=== PATIENT | male | born 1985 | race Two or more races ===

== ENCOUNTER 2017-02-27 09:00 | Emergency (ER) | payer SELFPAY ==
[2017-03-01 10:39] LABS: BLOOD UREA NITROGEN 14 mg/dL (7-20); CALCIUM 8.6 mg/dL (8.4-10.2); CHLORIDE 100 mmol/L (98-107); CREATININE RESULT 0.79 mg/dL (0.52-1.25); GLUCOSE 296 mg/dL (75-110); POTASSIUM 4.1 mmol/L (3.6-5.0)
[2017-03-01 10:40] LABS: ALANINE AMINOTRANSFERASE 61 U/L (21-72); ALBUMIN 4.1 g/dL (3.5-5.0); ALKALINE PHOSPHATASE 92 U/L (38-126); ANION GAP 17 (5-19); ASPARTATE AMINO TRANSFERASE 33 U/L (17-59); CARBON DIOXIDE 22 mmol/L (22-30); SODIUM 138.6 mmol/L (137-145)
[2017-03-01 10:41] LABS: BILIRUBIN,DIRECT 0.5 mg/dL (0.0-0.4); BILIRUBIN,TOTAL 1.2 mg/dL (0.2-1.3); TOTAL PROTEIN 7.5 g/dL (6.3-8.2)
== END 2017-02-27 14:35 | disposition home or self-care (01) ==
LOC: ER 09:00
DX: E11.9 Type 2 diabetes mellitus without complications (principal); R35.8 Other polyuria; I10 Essential (primary) hypertension; R63.1 Polydipsia; R42 Dizziness and giddiness
CPT/HCPCS: 36415; 80053; 96360; 99285

== ENCOUNTER 2019-05-13 21:35 | Emergency (ER) | payer SELFPAY ==
[2019-05-14] MEDS ORDERED: PENICILLIN G BENZATHINE 1.2 MILLION UNIT/2 ML DISP.SYRIN IM ONE (01:03)
[2019-05-14] MEDS ORDERED: DEXAMETHASONE SOD PHOS INJ 10 MG/1 ML VIAL IM ONE (01:11)
--- NOTE | 2019-05-14 01:20 | ER Document Report ---
HPI - HPI Time Seen by Provider: 05/14/19 00:40 Pain Level: 2 Notes: Patient is an otherwise healthy 34-year-old male presenting to the emergency department with chief complaint of sore throat that is been going on for approximately 5 days. Patient reports fever started 2 days ago. He does report pain is worse to the right side of his throat. He reports he has painful swallowing but is able to swallow. Patient denies any history of similar illnesses. He denies any difficulty breathing. He does report that after the rapid strep was taken here in the emergency department he had some drainage that was foul tasting in his mouth. Past Medical History - General Information source: Patient - Social History Smoking Status: Never Smoker Frequency of alcohol use: Occasional Drug Abuse: None Family History: Reviewed & Not Pertinent Endocrine Medical History: Reports: Hx Diabetes Mellitus Type 2 - Takes metformin Surgical Hx: Negative - Immunizations Immunizations up to date: Yes Vertical Provider Document - CONSTITUTIONAL Notes: PHYSICAL EXAMINATION: GENERAL: Well-appearing, well-nourished and in no acute distress. HEAD: Atraumatic, normocephalic. EYES: Pupils equal round extraocular movements intact, conjunctiva are normal. ENT: Nares patent, oropharynx mildly erythematous, tonsillar swelling noted on the right, purulent drainage noted coming from the right tonsil, uvula is midline. Left tonsil mildly erythematous. No exudates noted on the tonsils. NECK: Moderate cervical lymphadenopathy noted to the right side. Mild cervical lymphadenopathy noted to the left side. LUNGS: No respiratory distress, lung sounds clear and equal bilaterally. Musculoskeletal: Normal range of motion NEUROLOGICAL: Normal speech, normal gait. PSYCH: Normal mood, normal affect. SKIN: Warm, Dry, normal turgor, no rashes or lesions noted. - INFECTION CONTROL TRAVEL OUTSIDE OF THE [place] IN LAST 30 DAYS: No Course - Re-evaluation Re-evalutation: Patient's rapid strep was negative however on evaluation patient does have some lymph nodes to the right side, he has a swollen right tonsillar that has purulent drainage coming from it. Patient and family member at bedside report that this occurred when the staff member here in the emergency department performed the rapid strep test with the swab. They state after she brushed the tonsils it started draining immediately. He does report some relief of his pain after it started draining. I did ask my attending physician Dr. Lopez to come to the bedside and evaluate the patient as I had not ever seen a presentation like this in that a abscess of the tonsils gets punctured by a rapid strep test. He did come to the bedside to evaluate the patient. He does concur that this is a tonsillar abscess however since it is already draining there is no indica tion for imaging or for an I&D. Patient is speaking in full and complete sentences, he is able to swallow his own secretions. An Accu-Chek was performed as patient does report he is a diabetic, this is within normal ranges so patient is being given IM Decadron and IM penicillin prior to discharge. Patient is Vietnamese-speaking, the [employer] translation system was used with nurse Tamela to go over all of patient's discharge instructions. Patient verbalizes understanding and agreement that he needs to return in 48 hours for an abscess recheck. He also understands the need to return sooner if his condition worsens in any way as outlined in his discharge instructions. - Vital Signs Vital signs: Temp Pulse Resp BP Pulse Ox 100.1 F 95 24 H 143/86 H 94 05/13/19 21:39 05/13/19 21:39 05/13/19 21:39 05/13/19 21:39 05/13/19 21:39 Discharge - Discharge Clinical Impression: Tonsillar abscess Condition: Stable Disposition: HOME, SELF-CARE Additional Instructions: Tonsillar abscess/Tonsillitis Tonsillitis is infection of the tonsils. Symptoms include sore throat, difficulty swallowing, fever and aches, and tender lumps under the angle of the jaw. Tonsillitis can be caused by bacteria or viruses. Viral tonsillitis must get better on its own. Antibiotics don't help. The doctor may test for mononucleosis if symptoms last many days. We can only treat the symptoms. Bacterial tonsillitis is treated with antibiotics. It may take a few days before improvement occurs. It's important to take all the antibiotics. Take acetaminophen or ibuprofen for pain and fever. Sip frequent clear liquids, or use popsicles or ice chips. Anesthetic sprays or lozenges may help a little (the pain of tonsillitis is deep, and isn't helped much by numbing the surface). Make sure the air in the room is not too dry. Avoid using decongestants or antihistamines. Tonsillectomy may be necessary if you have several episodes of tonsillitis within a couple of years, or if there are complications from your tonsillitis. It's usually not needed. Call the doctor if there is no improvement in two days, or if you have difficulty breathing, increasing throat pain, high fever, rash, or frequent vomiting. Please return to the emergency department in 48 hours for a recheck. Please return sooner if you develop worsening symptoms such as difficulty swallowing, persistent fever, worsening pain or difficulty breathing. You were given a dose of steroids and antibiotics here in the emergency department. Please take acetaminophen and ibuprofen for pain and inflammation. Drink plenty of fluids.
[2019-05-14 01:33] VITALS: BP 138/75
== END 2019-05-14 01:33 | disposition home or self-care (01) ==
LOC: ER 21:35
DX: J36 Peritonsillar abscess (principal); E11.9 Type 2 diabetes mellitus without complications
CPT/HCPCS: 99283; 96374; 96375; 87070; 87880; 82962; 87077; J0561; J1100

== ENCOUNTER 2019-06-17 13:29 | Emergency (ER) | payer SELFPAY ==
[2019-06-17] MEDS ORDERED: ASPIRIN 81 MG TABLET, CHEWABLE PO ONE (13:54)
[2019-06-17 14:19] LABS: ABSOLUTE BASOPHILS # (AUTO) 0.1 10^3/uL (0.0-0.2); ABSOLUTE EOSINOPHILS # (AUTO) 0.1 10^3/uL (0.0-0.6); ABSOLUTE LYMPHOCYTES (AUTO) 2.4 10^3/uL (0.5-4.7); ABSOLUTE MONOCYTES (AUTO) 0.5 10^3/uL (0.1-1.4); ABSOLUTE NEUT (AUTO) 5.1 10^3/uL (1.7-8.2); BASOPHILS % (AUTO) 0.7 % (0-2); EOSINOPHILS % (AUTO) 1.2 % (0-6); HEMATOCRIT 43.2 % (37.9-51.0); HEMOGLOBIN 15.2 g/dL (13.5-17.0); LYMPHOCYTES % (AUTO) 29.8 % (13-45); MEAN CORPUSCULAR HEMOGLOBIN 30.4 pg (27.0-33.4); MEAN CORPUSCULAR HGB CONC 35.2 g/dL (32.0-36.0); MEAN CORPUSCULAR VOLUME 87 fl (80-97); MONOCYTES % (AUTO) 5.9 % (3-13); PLATELET COUNT 260 10^3/uL (150-450); RED BLOOD COUNT 4.99 10^6/uL (4.35-5.55); RED CELL DISTRIBUTION WIDTH 12.6 % (11.5-14.0); SEGMENTED NEUTROPHILS % (AUTO) 62.4 % (42-78); TOTAL CELLS COUNTED % (AUTO) 100 %; WHITE BLOOD COUNT 8.1 10^3/uL (4.0-10.5)
--- NOTE | 2019-06-17 14:22 | RADIOLOGY REPORT (SQ) ---
EXAM DESCRIPTION: CHEST 2 VIEWS COMPLETED DATE/TIME: 06/17/2019 2:14 pm REASON FOR STUDY: CP COMPARISON: None. EXAM PARAMETERS: NUMBER OF VIEWS: two views TECHNIQUE: Digital Frontal and Lateral radiographic views of the chest acquired. RADIATION DOSE: NA LIMITATIONS: none FINDINGS: LUNGS AND PLEURA: No opacities, masses or pneumothorax. No pleural effusion. MEDIASTINUM AND HILAR STRUCTURES: No masses or contour abnormalities. HEART AND VASCULAR STRUCTURES: Heart normal size. No evidence for failure. BONES: No acute findings. HARDWARE: None in the chest. OTHER: No other significant finding. IMPRESSION: NO ACUTE RADIOGRAPHIC FINDING IN THE CHEST. TECHNICAL DOCUMENTATION: JOB ID: [id number] [employer]- All Rights Reserved Reading location - IP/workstation name: [email or web address]
[2019-06-17 14:38] LABS: ALBUMIN 4.3 g/dL (3.5-5.0); ALKALINE PHOSPHATASE 92 U/L (38-126); ANION GAP 13 (5-19); ASPARTATE AMINO TRANSFERASE 24 U/L (17-59); BILIRUBIN,DIRECT 0.5 mg/dL (0.0-0.4); BILIRUBIN,TOTAL 1.1 mg/dL (0.2-1.3); BLOOD UREA NITROGEN 18 mg/dL (7-20); CALCIUM 9.5 mg/dL (8.4-10.2); CARBON DIOXIDE 23 mmol/L (22-30); CHLORIDE 97 mmol/L (98-107); CREATINE KINASE 87 U/L (55-170); GLUCOSE 381 mg/dL (75-110); POTASSIUM 4.3 mmol/L (3.6-5.0); TOTAL PROTEIN 8.3 g/dL (6.3-8.2)
[2019-06-17 14:48] LABS: CREATINE KINASE MB 0.76 ng/mL (<4.55)
[2019-06-17] MEDS ORDERED: NORMAL SALINE 1000 ML 1,000 ML IV ONE (14:49)
[2019-06-17 14:52] LABS: TROPONIN I < 0.012 ng/mL
--- NOTE | 2019-06-17 14:57 | ER Document Report ---
ED General - General Chief Complaint: Chest Pain Stated Complaint: CHEST PAIN Time Seen by Provider: 06/17/19 14:16 Notes: 31-year-old male presents emergency department complaining of elevated blood sugar and intermittent chest pain. Patient states that he is a lvm-[id number]-[id number] diabetic who quit taking his metformin in June. States he was diagnosed in February 2018 and recommended to take metformin, do dietary changes and exercise and has been noncompliant with all of these. He quit taking the metformin because he stated it made his blood pressure go low. States that this weekend he was drinking heavily and also used cocaine and for the past 2 days his blood sugars been in the 330s. Normally runs in the 110s. Denies any steroids, denies any other medications. Also admits to occasional sharp stabbing left-sided chest pain onset today. Denies dyspnea on exertion, shortness of breath or pleuritic chest pain. Patient is primarily Citizen [place]-speaking, coworker at bedside is interpreting. Offered formal sap basis architect and refused. TRAVEL OUTSIDE OF THE [place] IN LAST 30 DAYS: No - Related Data Allergies/Adverse Reactions: No Known Allergies Allergy (Verified 06/17/19 13:30) Past Medical History - General Information source: Patient - Social History Smoking Status: Former Smoker Frequency of alcohol use: Heavy Drug Abuse: Cocaine Family History: Reviewed & Not Pertinent Endocrine Medical History: Reports: Hx Diabetes Mellitus Type 2 - Takes metformin Renal/ Medical History: Denies: Hx Peritoneal Dialysis - Immunizations Immunizations up to date: Yes Review of Systems - Review of Systems Constitutional: See HPI - Elevated blood sugar. EENT: Blurred vision Cardiovascular: See HPI Respiratory: No symptoms reported -: Yes All other systems reviewed and negative Physical Exam - Vital signs Vitals: Temp Pulse Resp BP Pulse Ox 100.2 F 97 15 148/93 H 97 06/17/19 13:42 06/17/19 13:42 06/17/19 13:42 06/17/19 13:42 06/17/19 13:42 - Notes Notes: GENERAL: Alert, interacts well. No acute distress. HEAD: Normocephalic, atraumatic EYES: Pupils equal, round and reactive to light, extraocular movements intact. ENT: Oral mucosa moist, tongue midline. NECK: Full range of motion, supple, trachea midline. LUNGS: Clear to auscultation bilaterally, no wheezes, rales or rhonchi, no respiratory distress. HEART: Regular rate and rhythm, no murmurs, gallops, rubs. ABDOMEN: Soft, nontender, nondistended, bowel sounds present in all 4 quadrants. EXTREMITIES: Moves all 4 extremities spontaneously, no edema, radial and dorsalis pedis pulses 2/4 bilaterally. No cyanosis. NEUROLOGICAL: Alert and oriented x3, normal speech, biceps and patellar DTRs 2+ bilaterally. PSYCH: Normal mood, normal affect. SKIN: Warm, Dry, normal turgor, no rashes or lesions noted. Course - Re-evaluation Re-evalutation: 06/17/19 17:49 CBC unremarkable, CMP shows pseudohyponatremia with a sodium 133.4, glucose elevated at 381, troponin negative. Chest x-ray shows no acute process. EKG is nonischemic. Patient has been given IV fluid. Blood sugar will be rechecked, insulin will be given if necessary. 06/17/19 19:29 Repeat troponin is negative. Small amount of insulin has been given. Patient will be discharged home. Patient was educated regarding the need to keep taking his metformin and to follow a diabetes appropriate diet. Patient has agreed to stop eating servings of rice a day. 06/17/19 19:30 Patient is no longer febrile. I do not see a source that because the moderately elevated temperature of 100.2. Discussed with patient that he may develop further symptoms. If he develops rhinorrhea and sore throat there is no need to return otherwise he should return should he develop new or concerning symptoms such as vomiting, diarrhea or abdominal pain. 06/17/19 19:39 Patient will follow-up with initial prescriber of metformin in the next 2 weeks. - Vital Signs Vital signs: Temp Pulse Resp BP Pulse Ox 98.3 F 97 21 H 119/85 97 06/17/19 17:34 06/17/19 13:42 06/17/19 19:00 06/17/19 18:02 06/17/19 19:00 - Laboratory Result Diagrams: 06/17/19 14:00 06/17/19 14:00 Laboratory results interpreted by me: 06/17/19 06/17/19 14:00 17:55 Sodium 133.4 L Chloride 97 L Glucose 381 H POC Glucose 272 H Direct Bilirubin 0.5 H Total Protein 8.3 H - EKG Interpretation by Me Additional EKG results interpreted by me: 06/17/19 17:51 EKG shows sinus rhythm at a rate of 93, left axis deviation, normal intervals, poor R wave progression, no ST segment elevations or depressions per my interpretation. Discharge - Discharge Clinical Impression: Chest pain Qualifiers: Chest pain type: precordial pain Qualified Code(s): R07.2 - Precordial pain Hyperglycemia due to type 2 diabetes mellitus Qualifiers: Diabetes mellitus senior care insulin use: without senior care use Qualified Code(s): E11.65 - Type 2 diabetes mellitus with hyperglycemia Condition: Stable Disposition: HOME, SELF-CARE Additional Instructions: Today we did not find a specific source of infection. You had a borderline elevated temperature today. You may develop more symptoms of infections later this week. If you simply develop a runny nose and sore throat without any difficulty breathing or shortness of breath you do not need to return however if you develop severe abdominal pain, vomiting or any new or concerning symptoms please return to the emergency department for further evaluation. The elevated temperature is likely what was causing your blood sugar to go up. It is very important that you start taking your metformin again. This can cause some diarrhea. It is also important that you follow a proper diabetic diet. You should avoid simple carbohydrates such as rice, pasta and potatoes. You should eat complex carbohydrates such as beans and oatmeal. You should also eat lots of vegetables.
[2019-06-17] MEDS ORDERED: INSULIN REG, HUMAN 100 UNIT/ML 3 ML VIAL (PYX) SUBCUT ONE (18:42)
[2019-06-17 20:51] VITALS: BP 110/72
--- NOTE | 2019-06-18 14:20 | EKG REPORT ---
SEVERITY:- OTHERWISE NORMAL ECG - SINUS RHYTHM LEFT AXIS DEVIATION : Confirmed by: Olive Alonzo 18-Jun-2019 14:19:36
== END 2019-06-17 20:30 | disposition home or self-care (01) ==
LOC: ER 13:29
DX: R07.2 Precordial pain (principal); E11.65 Type 2 diabetes mellitus with hyperglycemia; T38.3X6A Underdosing of insulin and oral hypoglycemic [antidiabetic] drugs, initial encounter; Z91.128 Patient's intentional underdosing of medication regimen for other reason; Z91.14 Patient's other noncompliance with medication regimen; Z91.11 Patient's noncompliance with dietary regimen; F14.10 Cocaine abuse, uncomplicated; H53.8 Other visual disturbances; Z87.891 Personal history of nicotine dependence
CPT/HCPCS: 93005; 36415; 82553; 82962; 82550; 85025; 80053; 84484; 71046; 93010; J1815; J7030; 96360; 99285

== ENCOUNTER 2019-07-25 22:23 | Emergency (ER) | payer SELFPAY ==
[2019-07-25] MEDS ORDERED: ASPIRIN 81 MG TABLET, CHEWABLE PO ONE (22:59)
--- NOTE | 2019-07-25 23:35 | RADIOLOGY REPORT (SQ) ---
EXAM DESCRIPTION: XR CHEST 2 VIEWS COMPLETED DATE/TME: 07/25/2019 00:00 CLINICAL HISTORY: 34 years Male, chest pain COMPARISON: 06/17/19 NUMBER OF VIEWS/TECHNIQUE: 1/AP FINDINGS: Clear lungs of increased volume, and normal cardiac silhouette. No pneumothorax. Stable bony thorax. IMPRESSION: No significant change. No acute cardiopulmonary findings.
[2019-07-25] MEDS ORDERED: LORAZEPAM INJ 2 MG/1 ML VIAL IV ONE (23:55)
--- NOTE | 2019-07-25 23:57 | ER Document Report ---
ED Cardiac - General Chief Complaint: Chest Pain Stated Complaint: CHEST PAIN Time Seen by Provider: 07/25/19 23:44 Notes: Patient is a 34-year-old male that comes emergency department for chief complaint of chest pain. He states it feels like someone is grabbing him by the chest. He started having the symptoms at 9 PM tonight, he does admit that earlier this afternoon he did do cocaine. He states he has only done this once before. He denies recreational drugs otherwise, he does not smoke, he denies alcohol. He states he is on metformin for type 2 diabetes but he denies any medical history otherwise including denying any surgeries. He denies any family history of cardiac disease. He denies any other complaints including vomiting, shortness of breath, fever. TRAVEL OUTSIDE OF THE [place] IN LAST 30 DAYS: No - Related Data Allergies/Adverse Reactions: No Known Allergies Allergy (Verified 06/17/19 13:30) Past Medical History - General Information source: Patient - Social History Smoking Status: Never Smoker Frequency of alcohol use: Rare Drug Abuse: Cocaine Lives with: Family Family History: Reviewed & Not Pertinent Patient has suicidal ideation: No Patient has homicidal ideation: No Endocrine Medical History: Reports: Hx Diabetes Mellitus Type 2 - Takes metformin Renal/ Medical History: Denies: Hx Peritoneal Dialysis Surgical Hx: Negative - Immunizations Immunizations up to date: Yes Hx Diphtheria, Pertussis, Tetanus Vaccination: Yes Review of Systems - Review of Systems Constitutional: No symptoms reported EENT: No symptoms reported Cardiovascular: See HPI Respiratory: No symptoms reported Gastrointestinal: No symptoms reported Genitourinary: No symptoms reported Male Genitourinary: No symptoms reported Musculoskeletal: No symptoms reported Skin: No symptoms reported Hematologic/Lymphatic: No symptoms reported Neurological/Psychological: No symptoms reported Physical Exam - Vital signs Vitals: Temp Pulse Resp BP Pulse Ox 98.2 F 118 H 16 173/97 H 100 07/25/19 22:26 07/25/19 22:26 07/25/19 22:26 07/25/19 22:26 07/25/19 22:26 - Notes Notes: GENERAL: Alert, interacts well. HEAD: Normocephalic, atraumatic. EYES: Pupils dilated but equal, round, and reactive to light. Extraocular movements intact. ENT: Oral mucosa moist, tongue midline. Oropharynx unremarkable. Airway patent. NECK: Full range of motion. Supple. Trachea midline. LUNGS: Clear to auscultation bilaterally, no wheezes, rales, or rhonchi. No respiratory distress. HEART: Tachycardic, normal rhythm, no murmur ABDOMEN: Soft, non-tender. Non-distended. Bowel sounds present in all 4 quadrants. GENITOURINARY: Deferred EXTREMITIES: Moves all 4 extremities spontaneously. No edema, normal radial and dorsalis pedis pulses bilaterally. No cyanosis. BACK: no cervical, thoracic, lumbar midline tenderness. No saddle anesthesia, no rmal distal neurovascular exam. Moves all extremities in full range of motion. NEUROLOGICAL: Alert and oriented x3. Normal speech. Cranial nerves II through XII grossly intact. PSYCH: Patient talks rapidly SKIN: Warm, dry, normal turgor. No rashes or lesions noted. Course - Re-evaluation Re-evalutation: On initial evaluation patient tachycardic, has dilated pupils, complaining of discomfort in the left side of the chest. EKG unremarkable other than tachycardia, initial troponin negative, bicarb is low at 19 patient is being g iven IV fluids, Ativan. CBC unremarkable. Chest x-ray unremarkable. Patient does not appear to be in distress. He does not have any risk factors other than substance abuse. After Ativan, IV fluids, tachycardia improved, patient fell asleep, on awakening symptoms have resolved. Troponin was trended and negative. Cocaine is not positive, possible positive amphetamines, patient states this is quite likely. He states the substance was on a table, he was encouraged to take this, he sampled it by placing a small amount on his finger and placing on his tongue. He states this was a huge mistake, he states that he understands the risks of substance abuse including heart attack and long-term effects which are extreme, he states he plans on never using this again, he denies SI or HI, his brother states this is out of character for him and he has only done this once before that he knows of. Patient is going home with his brother. Discussed follow-up and return precautions. Patient was discussed with Dr. Richter. Stable at time of discharge. - Vital Signs Vital signs: Temp Pulse Resp BP Pulse Ox 98.2 F 118 H 26 H 127/87 H 95 07/25/19 22:26 07/25/19 22:26 07/26/19 05:01 07/26/19 05:01 07/26/19 05:01 - Laboratory Result Diagrams: 07/25/19 23:40 07/25/19 23:40 Laboratory results interpreted by me: 07/25/19 23:40 Potassium 3.5 L Carbon Dioxide 19 L Glucose 167 H Creatine Kinase 219 H - EKG Interpretation by Me Additional EKG results interpreted by me: EKG shows sinus tachycardia at a rate of 113, no T wave inversions or ST segment changes in consecutive leads, QTC of 450. Discharge - Discharge Clinical Impression: Substance abuse Chest pain Qualifiers: Chest pain type: unspecified Qualified Code(s): R07.9 - Chest pain, unspecified Condition: Stable Disposition: HOME, SELF-CARE Additional Instructions: Do not use cocaine, methamphetamine, or any street drug. These are extremely dangerous and continued use will lead to your . Your work-up today fortunately does not show a concerning problem. Follow-up with primary care. Come back if you are worse including difficulty breathing, fever, chest pain, or any other concerning or worsening symptoms.
[2019-07-26 00:10] LABS: ALBUMIN 4.7 g/dL (3.5-5.0); ALKALINE PHOSPHATASE 65 U/L (38-126); ANION GAP 15 (5-19); ASPARTATE AMINO TRANSFERASE 23 U/L (17-59); BILIRUBIN,DIRECT 0.2 mg/dL (0.0-0.4); BILIRUBIN,TOTAL 1.1 mg/dL (0.2-1.3); BLOOD UREA NITROGEN 10 mg/dL (7-20); CALCIUM 9.5 mg/dL (8.4-10.2); CARBON DIOXIDE 19 mmol/L (22-30); CHLORIDE 103 mmol/L (98-107); CREATINE KINASE 219 U/L (55-170); GLUCOSE 167 mg/dL (75-110); POTASSIUM 3.5 mmol/L (3.6-5.0)
[2019-07-26 00:19] LABS: ABSOLUTE LYMPHOCYTES (AUTO) 2.3 10^3/uL (0.5-4.7); ABSOLUTE MONOCYTES (AUTO) 0.6 10^3/uL (0.1-1.4); ABSOLUTE NEUT (AUTO) 6.1 10^3/uL (1.7-8.2); BASOPHILS % (AUTO) 0.4 % (0-2); EOSINOPHILS % (AUTO) 0.1 % (0-6); HEMATOCRIT 39.8 % (37.9-51.0); HEMOGLOBIN 13.6 g/dL (13.5-17.0); MEAN CORPUSCULAR HEMOGLOBIN 30.1 pg (27.0-33.4); MEAN CORPUSCULAR HGB CONC 34.2 g/dL (32.0-36.0); MEAN CORPUSCULAR VOLUME 88 fl (80-97); MONOCYTES % (AUTO) 6.4 % (3-13); PLATELET COUNT 257 10^3/uL (150-450); RED BLOOD COUNT 4.53 10^6/uL (4.35-5.55); RED CELL DISTRIBUTION WIDTH 12.7 % (11.5-14.0); SEGMENTED NEUTROPHILS % (AUTO) 67.1 % (42-78); TOTAL CELLS COUNTED % (AUTO) 100 %
[2019-07-26 00:22] LABS: CREATINE KINASE MB 1.83 ng/mL (<4.55); TROPONIN I < 0.012 ng/mL
[2019-07-26] MEDS ORDERED: NORMAL SALINE 1000 ML 1,000 ML IV ONE (01:14)
[2019-07-26 01:41] LABS: INTERNATIONAL RATION (INR) 1.04; PROTHROMBIN TIME 13.6 SEC (11.4-15.4)
[2019-07-26] MEDS ORDERED: LORAZEPAM INJ 2 MG/1 ML VIAL IV ONE (02:01)
[2019-07-26 02:09] LABS: URINE BARBITURATES SCREEN NEGATIVE; URINE BENZODIAZEPINES SCREEN NEGATIVE; URINE COCAINE SCREEN NEGATIVE; URINE MARIJUANA (THC) SCREEN NEGATIVE; URINE METHADONE SCREEN NEGATIVE; URINE PHENCYCLIDINE SCREEN NEGATIVE
[2019-07-26 05:45] VITALS: BP 127/87
--- NOTE | 2019-07-26 08:34 | EKG REPORT ---
SEVERITY:- ABNORMAL ECG - SINUS TACHYCARDIA NONSPECIFIC INTRAVENTRICULAR CONDUCTION DELAY : Confirmed by: Asim Melgar MD 26-Jul-2019 08:34:06
== END 2019-07-26 05:51 | disposition home or self-care (01) ==
LOC: ER 22:23
DX: R07.9 Chest pain, unspecified (principal); F14.10 Cocaine abuse, uncomplicated; E11.9 Type 2 diabetes mellitus without complications; Z79.84 Long term (current) use of oral hypoglycemic drugs
CPT/HCPCS: 93005; 36415; 82553; 82550; 85025; 85610; 80053; 84484; 80307; 71046; 93010; J2060; J7030

== ENCOUNTER 2020-09-26 11:17 | Emergency (ER) | payer SELFPAY ==
[2020-09-26 12:35] LABS: ABSOLUTE LYMPHOCYTES (AUTO) 2.4 10^3/uL (0.5-4.7); ABSOLUTE MONOCYTES (AUTO) 0.6 10^3/uL (0.1-1.4); ABSOLUTE NEUT (AUTO) 5.7 10^3/uL (1.7-8.2); BASOPHILS % (AUTO) 0.3 % (0-2); EOSINOPHILS % (AUTO) 0.2 % (0-6); HEMATOCRIT 43.1 % (37.9-51.0); HEMOGLOBIN 14.8 g/dL (13.5-17.0); LYMPHOCYTES % (AUTO) 27.4 % (13-45); MEAN CORPUSCULAR HEMOGLOBIN 31.8 pg (27.0-33.4); MEAN CORPUSCULAR HGB CONC 34.4 g/dL (32.0-36.0); MEAN CORPUSCULAR VOLUME 92 fl (80-97); MONOCYTES % (AUTO) 7.1 % (3-13); PLATELET COUNT 262 10^3/uL (150-450); RED BLOOD COUNT 4.67 10^6/uL (4.35-5.55); TOTAL CELLS COUNTED % (AUTO) 100 %; WHITE BLOOD COUNT 8.8 10^3/uL (4.0-10.5)
[2020-09-26 12:52] LABS: ALBUMIN 4.8 g/dL (3.5-5.0); ALKALINE PHOSPHATASE 104 U/L (38-126); ANION GAP 14 (5-19); ASPARTATE AMINO TRANSFERASE 18 U/L (17-59); BILIRUBIN,DIRECT 0.1 mg/dL (0.0-0.4); BILIRUBIN,TOTAL 1.4 mg/dL (0.2-1.3); BLOOD UREA NITROGEN 13 mg/dL (7-20); CALCIUM 9.7 mg/dL (8.4-10.2); CARBON DIOXIDE 23 mmol/L (22-30); CHLORIDE 97 mmol/L (98-107); CREATINE KINASE 52 U/L (55-170); GLUCOSE 303 mg/dL (75-110); POTASSIUM 4.3 mmol/L (3.6-5.0); TOTAL PROTEIN 8.2 g/dL (6.3-8.2)
[2020-09-26 13:04] LABS: CREATINE KINASE MB 0.96 ng/mL (<4.55)
[2020-09-26 13:06] LABS: TROPONIN I < 0.012 ng/mL
[2020-09-26] MEDS ORDERED: NORMAL SALINE 1000 ML 1,000 ML IV ONE (13:38)
--- NOTE | 2020-09-26 13:38 | ER Document Report ---
ED Cardiac - General Chief Complaint: Neck and Upper Back Pain Stated Complaint: PALPITATIONS Time Seen by Provider: 09/26/20 13:21 Mode of Arrival: Ambulatory Information source: Patient Notes: PRIOR ED VISIT with NILTON NASH on Date: 06/17/19 14:53 Chief Complaint: Chest Pain 31-year-old male presents emergency department complaining of elevated blood sugar and intermittent chest pain. Patient states that he is a [id number] diabetic who quit taking his metformin in June of last year. States he was diagnosed in February 2018 and recommended to take metformin, do dietary changes and exercise and has been noncompliant with all of these. He quit taking the metformin because he stated it made his blood pressure go low. States that this weekend he was drinking heavily and also used cocaine and for the past 2 days his blood sugars been in the 330s. Normally runs in the 110s. Denies any steroids, denies any other medications. Also admits to occasional sharp stabbing left-sided chest pain onset today. Denies dyspnea on exertion, shortness of breath or pleuritic chest pain. Patient is primarily Arabic-speaking, coworker at bedside is interpreting. Offered formal compounder flavorings and refused. PRIOR ED VISIT WITH Emergency Provider: LORNA KIRKPATRICK on Date: 07/25/19 23:56 Chief Complaint: Chest Pain Patient is a 34-year-old male that comes emergency department for chief complaint of chest pain. He states it feels like someone is grabbing him by the chest. He started having the symptoms at 9 PM tonight, he does admit that brandon ier this afternoon he did do cocaine. He states he has only done this once before. He denies recreational drugs otherwise, he does not smoke, he denies alcohol. He states he is on metformin for type 2 diabetes but he denies any medical history otherwise including denying any surgeries. He denies any family history of cardiac disease. He denies any other complaints including vomiting, shortness of breath, fever. MY NOTES 35-year-old male arrives with chief complaint of acute onset of left sided chest pain with referral down his left arm and referral into his left lateral neck. Patient has a history of similar symptoms in the past. He also advises staff that he takes Metformin for diabetes and is known to have his sugars go up and down. He also has a prior history of substance abuse. He left work today because of symptoms. As per above he was seen by Dr. Nash and [facility] last year for similar symptoms. Patient advises today that he has palpitations in his heart. He also advises he has some dizziness in his head and some runny nose. TRAVEL OUTSIDE OF THE [place] IN LAST 30 DAYS: No - Related Data Allergies/Adverse Reactions: No Known Allergies Allergy (Verified 09/26/20 12:02) Past Medical History - General Information source: Patient - Social History Smoking Status: Former Smoker Cigarette use (# per day): No Chew tobacco use (# tins/day): No Smoking Education Provided: No Frequency of alcohol use: Occasional Family History: Reviewed & Not Pertinent Endocrine Medical History: Reports: Hx Diabetes Mellitus Type 2 - Takes metform in Renal/ Medical History: Denies: Hx Peritoneal Dialysis - Immunizations Immunizations up to date: Yes Hx Diphtheria, Pertussis, Tetanus Vaccination: Yes Review of Systems - Review of Systems Constitutional: See HPI, Recent illness EENT: See HPI, Nose congestion Cardiovascular: See HPI, Palpitations Respiratory: No symptoms reported Gastrointestinal: No symptoms reported Genitourinary: No symptoms reported Male Genitourinary: No symptoms reported Musculoskeletal: No symptoms reported Skin: No symptoms reported Hematologic/Lymphatic: No symptoms reported Neurological/Psychological: No symptoms reported Physical Exam - Vital signs Vitals: Temp Pulse Resp BP Pulse Ox 98.2 F 107 H 20 138/95 H 98 09/26/20 11:28 09/26/20 11:28 09/26/20 11:28 09/26/20 11:28 09/26/20 11:28 Interpretation: Tachycardic, Tachypneic - General General appearance: Alert, Anxious - HEENT Head: Normocephalic, Atraumatic Eyes: Normal Pupils: PERRL - Respiratory Respiratory status: No respiratory distress Chest status: Nontender Breath sounds: Normal Chest palpation: Normal - Cardiovascular Rhythm: Tachycardia Heart sounds: Normal auscultation Murmur: No - Abdominal Inspection: Normal Distension: No distension Bowel sounds: Normal Tenderness: Nontender Organomegaly: No organomegaly - Rectal Prostate: Other - Deferred - Genitourinary Scrotum: Other - Deferred - Back Back: Normal, Nontender - Extremities General upper extremity: Normal inspection, Nontender, Normal color, Normal ROM, Normal temperature General lower extremity: Normal inspection, Nontender, Normal color, Normal ROM, Normal temperature, Normal weight bearing. No: Bar's sign - Neurological Neuro grossly intact: Yes Cognition: Normal Orientation: AAOx4 [place] Coma Scale Eye Opening: Spontaneous [place] Coma Scale Verbal: Oriented [place] Coma Scale Motor: Obeys Commands [place] Coma Scale Total: 15 Speech: Normal Motor strength normal: LUE, RUE, LLE, RLE Sensory: Normal - Psychological Associated symptoms: Anxious - Skin Skin Temperature: Warm Skin Moisture: Dry Skin Color: Normal Course - Vital Signs Vital signs: Temp Pulse Resp BP Pulse Ox 98.2 F 107 H 28 H 147/84 H 99 09/26/20 11:28 09/26/20 11:28 09/26/20 15:01 09/26/20 15:00 09/26/20 15:01 - Laboratory Results Result Diagrams: 09/26/20 11:42 09/26/20 11:42 Laboratory Results Interpreted: 09/26/20 09/26/20 11:42 13:57 Sodium 133.9 L Chloride 97 L Glucose 303 H Total Bilirubin 1.4 H Creatine Kinase 52 L Urine Glucose (UA) >=500 H Urine Ketones 80 H Critical Laboratory Results Reviewed: Yes Attending or Supervising Physician who Reviewed Labs: JENNIFER LOPEZ JR - Radiology Results Radiology Results Interpreted: 09/26/20 16:27 [facility] radiology Critical Radiology Results Reviewed: Yes Attending or Supervising Physician who Reviewed Radiology: JENNIFER LOPEZ JR - EKG Interpretation by Me EKG shows normal: Sinus rhythm Rate: Tachycardia Rhythm: NSR - [address] rate with no ST elevation and no ST depression no T wave depression and no T wave elevation and this was read by myself as well as initial physician evaluation. Also I agree with the EKG findings. Discharge - Discharge Clinical Impression: Hyperglycemia, Tachycardia, Positive cocaine, Positive amphetamines Condition: Stable Disposition: HOME, SELF-CARE Additional Instructions: Follow-up outpatient with Dr. Diaz matrix bath operator. Avoid using any Sudafed or cocaine or amphetamines. Your blood sugar is high today and you need to take your Metformin and glyburide avoid any sweetened drinks like soda pop Coca-Cola Pepsi-Cola sweet tea etc. Encourage fluids like water and nonsweetened fluids that have high fructose / glucose syrups. Prescriptions: Glyburide [Diabeta 5 mg Tablet] 5 mg PO QAM #30 tablet
[2020-09-26 14:23] LABS: APPEARANCE,URINE CLEAR; BILIRUBIN,URINE NEGATIVE (NEGATIVE); COLOR,URINE YELLOW; GLUCOSE, URINE >=500 mg/dL (NEGATIVE); KETONES,URINE 80 mg/dL (NEGATIVE); LEUKOCYTE ESTERASE,URINE NEGATIVE (NEGATIVE); NITRITE,URINE NEGATIVE (NEGATIVE); PROTEIN,URINE NEGATIVE (NEGATIVE); URINE SPECIFIC GRAVITY 1.038; UROBILINOGEN,URINE NEGATIVE mg/dL (<2.0)
[2020-09-26 14:41] LABS: URINE BARBITURATES SCREEN NEGATIVE; URINE BENZODIAZEPINES SCREEN NEGATIVE; URINE MARIJUANA (THC) SCREEN NEGATIVE; URINE METHADONE SCREEN NEGATIVE; URINE PHENCYCLIDINE SCREEN NEGATIVE
--- NOTE | 2020-09-26 14:44 | RADIOLOGY REPORT (SQ) ---
EXAM DESCRIPTION: CHEST SINGLE VIEW IMAGES COMPLETED DATE/TIME: 09/26/2020 2:19 pm REASON FOR STUDY: cp COMPARISON: PA and lateral views of the chest from 07/25/2019. EXAM PARAMETERS: NUMBER OF VIEWS: One view. TECHNIQUE: An AP view of the chest was obtained. RADIATION DOSE: NA LIMITATIONS: None. FINDINGS: LUNGS AND PLEURA: No consolidation, pleural effusion or pneumothorax. MEDIASTINUM AND HILAR STRUCTURES: No mediastinal or hilar contour abnormality. HEART AND VASCULAR STRUCTURES: The cardiac silhouette and pulmonary vasculature are within normal frazier its. BONES: No acute findings. HARDWARE: None in the chest. OTHER: No other finding. IMPRESSION: No acute cardiopulmonary process. TECHNICAL DOCUMENTATION: JOB ID: [id number] 2010 [employer]- All Rights Reserved Reading location - IP/workstation name: [email or web address]
[2020-09-26 14:49] LABS: URINE COCAINE SCREEN UNCONFIRMED POSITIVE
[2020-09-26 14:50] LABS: A TYPE INFLUENZA AG NEGATIVE (NEGATIVE); B INFLUENZA AG NEGATIVE (NEGATIVE)
[2020-09-26 17:06] VITALS: BP 146/82
--- NOTE | 2020-09-26 19:09 | EKG REPORT ---
SEVERITY:- OTHERWISE NORMAL ECG - SINUS TACHYCARDIA LEFT AXIS DEVIATION : Confirmed by: Deepti Ribeiro MD 26-Sep-2020 19:08:39
== END 2020-09-26 16:55 | disposition home or self-care (01) ==
LOC: ER 11:17
DX: E11.65 Type 2 diabetes mellitus with hyperglycemia (principal); R00.0 Tachycardia, unspecified; R07.9 Chest pain, unspecified; R00.2 Palpitations; R09.89 Other specified symptoms and signs involving the circulatory and respiratory systems; R42 Dizziness and giddiness; R09.81 Nasal congestion; Z87.891 Personal history of nicotine dependence; Z20.828 Contact with and (suspected) exposure to other viral communicable diseases
CPT/HCPCS: 93005; 99285; 96360; 36415; 87070; 82553; 87880; 82550; 85025; 87635; 80053; 81001; 84484; 80307; 87804; 71045; 93010; J7030; C9803